=== PATIENT | male | born 1980 | race Caucasian/White ===

== ENCOUNTER 2018-09-06 08:57 | Emergency (ER) | payer OTHER ==
[2018-09-06] MEDS ORDERED: LIDOCAINE 1% MPF 2 ML AMPULE ONE (09:16)
[2018-09-06] MEDS ORDERED: BUPIVACAINE 0.25% PF 10 ML VIAL ONE (09:16)
[2018-09-06] MEDS ORDERED: TETANUS & DIPHTHERIA TOX,ADULT 0.5 ML VIAL ONE (09:22)
--- NOTE | 2018-09-06 09:51 | EDPHYS ---
Physician Documentation [facility] Name: Percy Holguin Age: 38 yrs Sex: Male : 1980 Arrival Date: 09/06/2018 Time: 09:00 Bed 18 Private MD: None, None ED Physician Marcelo Chaney HPI: 09/06 13:15 This 38 yrs old Male presents to ER via Ambulatory with complaints of Finger kdr laceration. 13:15 The patient or guardian reports injury, pain, tenderness. The complaints affect the PIP kdr of left index finger. Context: The problem was sustained at home, resulted from Laceration from knife. Onset: The symptoms/episode began/occurred suddenly, 2 hour(s) ago. Modifying factors: The symptoms are alleviated by nothing, the symptoms are aggravated by movement, dependent position. Associated signs and symptoms: Pertinent positives: Pertinent negatives: decreased sensation distally, fever, nausea, numbness distally, tingling distally, vomiting. Severity of symptoms: At their worst the symptoms were mild, in the emergency department the symptoms are unchanged. The patient has not experienced similar symptoms in the past. The patient has not recently seen a physician. Historical: - Allergies: 09:12 NKA; iw - Home Meds: 09:12 None [Active]; iw - PMHx: 09:12 None; iw - PSHx: 09:12 None; iw - Immunization history:: Adult Immunizations Last tetanus immunization: 2011. - Social history:: Smoking status: unknown. - Ebola Screening: : Patient negative for fever greater than or equal to 101.5 degrees Fahrenheit, and additional compatible Ebola Virus Disease symptoms Patient denies exposure to infectious person Patient denies travel to an Ebola-affected area in the 21 days before illness onset No symptoms or risks identified at this time. ROS: 13:15 MS/extremity: Positive for injury or acute deformity, laceration, pain, of the dorsal kdr aspect of middle phalanx of left index finger and dorsal aspect of proximal phalanx of left index finger. 13:23 Constitutional: Negative for fever, chills, and weight loss. kdr Exam: 13:15 MS/ Extremity: Pulses equal, no cyanosis. Neurovascular intact. Full, normal range kdr of motion. There is an avulsion laceratin to the distal dorsal left index finger Vital Signs: 09:15 BP 148 / 96; Pulse 92; Resp 16; Pulse Ox 99% on R/A; Pain 7/10; em Laceration: 13:15 Wound Repair of 4cm ( 1.6in ) subcutaneous laceration to dorsal aspect of middle kdr phalanx of left index finger and dorsal aspect of proximal phalanx of left index finger. Flap injruy. Distal neuro/vascular/tendon intact. Anesthesia: Digital block administered with 3 mls of 1% lidocaine, Digital block administered with 3 mls of 0.5% marcaine. Wound prep: Extensive cleansing by nurse, Wound irrigation, Wound explored. Skin closed with 6 4-0 Prolene using simple sutures and sterile technique. Dressed with Bacitracin, tube gauze, non-adherent dressing. Patient tolerated well. MDM: 09:50 Patient medically screened. kdr 13:15 Data reviewed: vital signs, nurses notes. Counseling: I had a detailed discussion with kdr the patient and/or guardian regarding: the historical points, exam findings, and any diagnostic results supporting the discharge/admit diagnosis, radiology results. 09/06 09:48 Order name: Prolene, Sutures; Complete Time: 09:56 [facility] 09/06 09:48 Order name: Dressing - Wound; Complete Time: 09:56 [facility] 09/06 09:48 Order name: Gloves, Sterile; Complete Time: 09:56 [facility] 09/06 09:48 Order name: Setup Suture Tray; Complete Time: 09:56 [facility] Administered Medications: 09:40 Drug: Bupivacaine (0.5 %) 8 ml Volume: 10 ml; Route: Infiltration; em 10:06 Follow up: Response: No adverse reaction; Pain is decreased em 09:40 Drug: Lidocaine (1 %) 8 ml/kg Volume: 20 ml; Route: Infiltration; em 10:06 Follow up: Response: Pain is decreased em 09:57 Drug: Tetanus-Diphtheria Toxoid Adult 0.5 ml {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 Exp: em 08/22/2020. Lot #: [id number]. } Route: IM; Site: right deltoid; 10:06 Follow up: Response: No adverse reaction em 09:57 Drug: KeFLEX 500 mg Route: PO; em 10:06 Follow up: Response: No adverse reaction em Disposition: 09/06/18 09:50 Discharged to Home. Impression: Left index finger laceration. - Condition is Stable. - Discharge Instructions: Laceration Care, Adult, [id number], Sutured Wound Care, [id number]. - Prescriptions for Keflex 500 mg Oral Capsule - take 1 capsule by ORAL route every 6 hours for 3 days; 12 capsule. Tramadol 50 mg Oral Tablet - take 1 tablet by ORAL route every 8 hours as needed; 12 tablet. - Medication Reconciliation Form, Thank You Letter, Antibiotic Education form. - Follow up: Private Physician; When: 2 - 3 days; Reason: Wound Recheck, Further diagnostic work-up, Recheck today's complaints, Continuance of care, Re-evaluation by your physician. - Problem is new. - Symptoms have improved. - Notes: Sutures should be taken out in 12 - 14 days Signatures: Marcelo Chaney MD MD kdr Dany Rose, JUKEBOX CHECKER JUKEBOX CHECKER em Kathryn Murguia RN RN iw Corrections: (The following items were deleted from the chart) 10:09 09:50 09/06/2018 09:50 Discharged to Home. Impression: Left index finger laceration. iw Condition is Stable. Forms are Medication Reconciliation Form, Thank You Letter, Antibiotic Education, Prescription Opioid Use. Follow up: Private Physician; When: 2 - 3 days; Reason: Wound Recheck, Further diagnostic work-up, Recheck today's complaints, Continuance of care, Re-evaluation by your physician. Problem is new. Symptoms have improved. kdr
--- NOTE | 2018-09-06 09:51 | ER ---
Nurse's Notes [facility] Name: Percy Holguin Age: 38 yrs Sex: Male : 1980 Arrival Date: 09/06/2018 Time: 09:00 Bed 18 Private MD: None, None Diagnosis: Left index finger laceration Presentation: 09/06 09:10 Presenting complaint: Patient states: cut his left index finger with a knife, was iw trying to cut hard plastic, occurred approx 2 hours ago. Transition of care: patient was not received from another setting of care. Onset of symptoms was September 06, 2018. Risk Assessment: Do you want to hurt yourself or someone else? Patient reports no desire to harm self or others. Initial Sepsis Screen: Does the patient meet any 2 criteria? No. Patient's initial sepsis screen is negative. Does the patient have a suspected source of infection? No. Patient's initial sepsis screen is negative. Care prior to arrival: None. 09:10 Method Of Arrival: Ambulatory iw 09:10 Acuity: CLAIRE 4 iw Historical: - Allergies: 09:12 NKA; iw - Home Meds: 09:12 None [Active]; iw - PMHx: 09:12 None; iw - PSHx: 09:12 None; iw - Immunization history:: Adult Immunizations Last tetanus immunization: 2011. - Social history:: Smoking status: unknown. - Ebola Screening: : Patient negative for fever greater than or equal to 101.5 degrees Fahrenheit, and additional compatible Ebola Virus Disease symptoms Patient denies exposure to infectious person Patient denies travel to an Ebola-affected area in the 21 days before illness onset No symptoms or risks identified at this time. Screenin:32 Abuse screen: Denies threats or abuse. Nutritional screening: No deficits noted. em Tuberculosis screening: No symptoms or risk factors identified. Fall Risk None identified. Assessment: 09:44 General: Appears in no apparent distress. uncomfortable, Behavior is calm, cooperative, em appropriate for age. Pain: Complains of pain in dorsal aspect of middle phalanx of left index finger. Neuro: Level of Consciousness is awake, alert, obeys commands, Oriented to person, place, time, situation. Cardiovascular: Capillary refill. Respiratory: Airway is patent Respiratory effort is even, unlabored, Respiratory pattern is regular, symmetrical. Derm: Wound noted dorsal aspect of middle phalanx of left index finger. Musculoskeletal: Range of motion: intact in all extremities. Vital Signs: 09:15 BP 148 / 96; Pulse 92; Resp 16; Pulse Ox 99% on R/A; Pain 7/10; em ED Course: 09:00 Patient arrived in ED. mr 09:01 None, None is Private Physician. mr 09:01 Marcelo Chaney MD is Attending Physician. kdr 09:04 Dany Rose LVN is Primary Nurse. em 09:11 Triage completed. iw 09:12 Arm band placed on. iw 09:32 Patient has correct armband on for positive identification. Placed in gown. Bed in low em position. Call light in reach. 09:32 Assist provider with laceration repair on dorsal aspect of middle phalanx of left index em finger that was between 2.6 to 7.5 cm using sutures. Set up tray. Performed by Marcelo Chaney MD Dressed with 4X4s, Kerlix, Patient tolerated well. Patient did not have IV access during this emergency room visit. 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 Exp: em 08/22/2020. Lot #: [id number]. } Route: IM; Site: right deltoid; 10:06 Follow up: Response: No adverse reaction em 09:57 Drug: KeFLEX 500 mg Route: PO; em 10:06 Follow up: Response: No adverse reaction em Outcome: 09:50 Discharge ordered by MD. kdr 10:09 Patient left the ED. iw 10:09 Discharged to home ambulatory. em 10:09 Condition: good 10:09 Discharge instructions given to patient, Instructed on discharge instructions, follow up and referral plans. medication usage, Demonstrated understanding of instructions, follow-up care, medications, Prescriptions given X 2. Signatures: Marcelo Chaney MD MD kdr Rivera, Mary mr Dany Rose LVN LVN em Blade, Kathryn, RN RN iw
[2018-09-06] MEDS ORDERED: CEPHALEXIN 250 MG CAP ONE ×2 (10:06→10:07)
== END 2018-09-06 10:09 | disposition home or self-care (01) ==
LOC: ER 08:57
PROC: 0JQK0ZZ Repair Left Hand Subcutaneous Tissue and Fascia, Open Approach (ICD-10-PCS; principal; 2018-09-06)
DX: S61.211A Laceration without foreign body of left index finger without damage to nail, initial encounter (principal); W26.0XXA Contact with knife, initial encounter; Y93.9 Activity, unspecified; Y92.9 Unspecified place or not applicable; Z23 Encounter for immunization
CPT/HCPCS: 90714; 99283; J2001